=== PATIENT | female | born 1935 | race Caucasian/White ===

== ENCOUNTER 2016-02-23 11:24 | Inpatient (IN) | payer MEDICARE, OTHER ==
[~2016-02-23] VITALS: Ht 170.2 cm; Wt 77.1 kg
[2016-02-23] MEDS ORDERED: CEFTRIAXONE 1 GM VIAL ONE (12:57)
[2016-02-23] MEDS ORDERED: SODIUM CHLORIDE 0.9% 100 ML IV ONE (12:57)
[2016-02-23] MEDS ORDERED: SODIUM CHLORIDE 0.9% 1,000 ML ONE (12:57)
[2016-02-23] MEDS ORDERED: NEB-ALBUTEROL 2.5 MG/3 ML INH ONE ×2 (13:32→13:33)
[2016-02-23] MEDS ORDERED: DUONEB INH ONE (13:32)
[2016-02-23] MEDS ORDERED: ACETAMINOPHEN 325 MG TAB ONE (13:57)
[2016-02-23] MEDS ORDERED: AZITHROMYCIN 500 MG VIAL IV ONE (13:57)
[2016-02-23] MEDS ORDERED: SODIUM CHLORIDE 0.9% 250 ML IV ONE (13:58)
[2016-02-23] MEDS ORDERED: LORAZEPAM 2 MG/ML VIAL ONE (13:58)
[2016-02-23] MEDS ORDERED: ONDANSETRON 4 MG VIAL IV PUSH PRN (15:05)
[2016-02-23] MEDS ORDERED: LACT RINGERS 1,000 ML IV ONE (15:05)
[2016-02-23] MEDS ORDERED: PHARMACY TO DOSE IV SCH ×2 (15:05)
[2016-02-23] MEDS ORDERED: SALINE FLUSH 10 ML FLUSH PRN (15:05)
[2016-02-23] MEDS ORDERED: GLUCAGON 1 MG VIAL IM PRN (15:05)
[2016-02-23] MEDS ORDERED: DEXTROSE 50% SYRINGE 50 ML IV PRN (15:05)
[2016-02-23] MEDS ORDERED: ACETAMINOPHEN 325 MG TAB PO PRN (15:05)
[2016-02-23] MEDS ORDERED: DILTIAZEM 50 MG/10 ML VIAL IV ONE (15:18)
[2016-02-23 18:14] VITALS: RESP 16
[2016-02-23 18:22] VITALS: BP_SYST 132; BP_SYST 136; RESP 16; TEMP 98
[2016-02-23 18:23] VITALS: Ht 170.2 cm; Wt 77.1 kg
[2016-02-23 19:00] VITALS: BP_SYST 133; RESP 19; TEMP 97.7
[2016-02-23] MEDS ORDERED: METHYLPRED SOD SUCC 40 MG VIAL IV ONE (19:40)
[2016-02-23] MEDS ORDERED: METHYLPRED SOD SUCC 125 MG/2 ML VIAL IV ONE (19:55)
[2016-02-23] MEDS ORDERED: DUONEB INH PRN (19:55)
[2016-02-23] MEDS ORDERED: LACT RINGERS 1,000 ML IV SCH (20:15)
[2016-02-23] MEDS: SYSTANE OP SOLN EYE EACH SCH (22:02)
[2016-02-23] MEDS: SALINE FLUSH 10 ML FLUSH SCH (22:03)
[2016-02-23] MEDS: DOCUSATE SOD 100 MG CAP PO SCH (22:03)
[2016-02-23] MEDS: FAMOTIDINE 20 MG TAB PO SCH (22:03)
[2016-02-23] MEDS ORDERED: LORAZEPAM 2 MG/ML VIAL IV PRN (22:20)
[2016-02-23 23:00] VITALS: BP_SYST 153; RESP 19; TEMP 98.3
[2016-02-23] MEDS: APIXABAN 2.5 MG TAB PO SCH (23:18)
[2016-02-23] MEDS: Atorvastatin 10 MG TAB PO SCH (23:18)
[2016-02-23] MEDS: PRAMIPEXOLE 0.25 MG TAB PO SCH (23:18)
[2016-02-24] VITALS (7 sets, daily range): BP systolic 119–151; RESP 16–18; TEMP 97.8–98.4
[2016-02-24] MEDS: DUONEB INH SCH ×6 (00:18→22:23)
[2016-02-24] MEDS: SODIUM CHLORIDE 0.9% FLUSH BAG 500 ML IV SCH (05:42)
[2016-02-24] MEDS: LEVOTHYROXINE 0.05 MG TAB PO SCH (05:42)
[2016-02-24] MEDS: LEVEMIR INSULIN SUBQ SCH (09:29)
[2016-02-24] MEDS: SYSTANE OP SOLN EYE EACH SCH ×2 (09:29→20:03)
[2016-02-24] MEDS: METHYLPRED SOD SUCC 40 MG VIAL IV SCH ×2 (09:29→20:03)
[2016-02-24] MEDS: FLUTICASONE 0.05% NA BTL NARE EACH SCH (09:30)
[2016-02-24] MEDS: METOPROLOL XL 50 MG TAB PO SCH (09:30)
[2016-02-24] MEDS: PRAMIPEXOLE 0.25 MG TAB PO SCH ×3 (09:30→20:03)
[2016-02-24] MEDS: APIXABAN 2.5 MG TAB PO SCH ×2 (09:30→20:03)
[2016-02-24] MEDS: SALINE FLUSH 10 ML FLUSH SCH ×2 (09:30→20:03)
[2016-02-24] MEDS: ASPIRIN EC 81 MG TAB PO SCH (09:30)
[2016-02-24] MEDS: FAMOTIDINE 20 MG TAB PO SCH ×2 (09:30→20:03)
[2016-02-24] MEDS: CEFTRIAXONE 2 GM in SODIUM CHLORIDE 0.9% 50 ML IV SCH (10:21)
[2016-02-24] MEDS: AZITHROMYCIN 500 MG in SODIUM CHLORIDE 0.9% 250 ML IV SCH (11:13)
[2016-02-24] MEDS: DOCUSATE SOD 100 MG CAP PO SCH (20:03)
[2016-02-24] MEDS: Atorvastatin 10 MG TAB PO SCH (20:03)
[2016-02-25] VITALS (7 sets, daily range): BP systolic 147–158; RESP 18; TEMP 97.2–98.7
[2016-02-25] MEDS: DUONEB INH SCH ×6 (02:03→22:57)
[2016-02-25] MEDS: LEVOTHYROXINE 0.05 MG TAB PO SCH (05:42)
[2016-02-25] MEDS: SODIUM CHLORIDE 0.9% FLUSH BAG 500 ML IV SCH (05:42)
[2016-02-25] MEDS: METHYLPRED SOD SUCC 40 MG VIAL IV SCH (10:12)
[2016-02-25] MEDS: SYSTANE OP SOLN EYE EACH SCH ×2 (10:12→20:28)
[2016-02-25] MEDS: APIXABAN 2.5 MG TAB PO SCH ×2 (10:13→20:29)
[2016-02-25] MEDS: PRAMIPEXOLE 0.25 MG TAB PO SCH ×3 (10:13→20:30)
[2016-02-25] MEDS: FAMOTIDINE 20 MG TAB PO SCH ×2 (10:13→20:30)
[2016-02-25] MEDS: CEFTRIAXONE 2 GM in SODIUM CHLORIDE 0.9% 50 ML IV SCH (10:13)
[2016-02-25] MEDS: AZITHROMYCIN 500 MG in SODIUM CHLORIDE 0.9% 250 ML IV SCH (10:13)
[2016-02-25] MEDS: FLUTICASONE 0.05% NA BTL NARE EACH SCH (10:13)
[2016-02-25] MEDS: ASPIRIN EC 81 MG TAB PO SCH (10:14)
[2016-02-25] MEDS: METOPROLOL XL 50 MG TAB PO SCH (10:14)
[2016-02-25] MEDS: SALINE FLUSH 10 ML FLUSH SCH ×2 (10:33→20:30)
[2016-02-25] MEDS: LEVEMIR INSULIN SUBQ SCH (10:34)
[2016-02-25] MEDS: SACCHA BOULARDII 250MG CAP PO SCH ×3 (12:01→20:30)
[2016-02-25] MEDS: ACETAMINOPHEN 500 MG TAB PO SCH (16:43)
[2016-02-25] MEDS: DOCUSATE SOD 100 MG CAP PO SCH (20:29)
[2016-02-25] MEDS: Atorvastatin 10 MG TAB PO SCH (20:29)
[2016-02-25] MEDS: TRAZODONE 50 MG TAB PO SCH (20:53)
[2016-02-26 04:41] VITALS: BP_SYST 150; RESP 18; TEMP 98.2
[2016-02-26] MEDS: SODIUM CHLORIDE 0.9% FLUSH BAG 500 ML IV SCH (05:05)
[2016-02-26] MEDS: LEVOTHYROXINE 0.05 MG TAB PO SCH (05:51)
[2016-02-26] MEDS: DUONEB INH SCH ×5 (06:10→22:28)
[2016-02-26 07:40] VITALS: BP_SYST 144; RESP 18; TEMP 98.1
[2016-02-26] MEDS ORDERED: PREDNISONE 10 MG TAB PO SCH (09:00)
[2016-02-26] MEDS ORDERED: MISSING DOSE XX ONE ×2 (09:40→17:00)
[2016-02-26] MEDS: FLUTICASONE 0.05% NA BTL NARE EACH SCH (09:45)
[2016-02-26] MEDS: SYSTANE OP SOLN EYE EACH SCH ×2 (09:45→20:51)
[2016-02-26] MEDS: LEVEMIR INSULIN SUBQ SCH (09:46)
[2016-02-26] MEDS: FAMOTIDINE 20 MG TAB PO SCH ×2 (09:47→20:52)
[2016-02-26] MEDS: METOPROLOL XL 50 MG TAB PO SCH (09:47)
[2016-02-26] MEDS: ACETAMINOPHEN 500 MG TAB PO SCH ×3 (09:47→17:42)
[2016-02-26] MEDS: PRAMIPEXOLE 0.25 MG TAB PO SCH ×3 (09:47→20:52)
[2016-02-26] MEDS: ASPIRIN EC 81 MG TAB PO SCH (09:48)
[2016-02-26] MEDS: APIXABAN 2.5 MG TAB PO SCH ×2 (09:48→20:52)
[2016-02-26] MEDS: SACCHA BOULARDII 250MG CAP PO SCH ×3 (09:48→20:52)
[2016-02-26] MEDS: SALINE FLUSH 10 ML FLUSH SCH ×2 (09:48→20:51)
[2016-02-26] MEDS: CEFTRIAXONE 2 GM in SODIUM CHLORIDE 0.9% 50 ML IV SCH (10:03)
[2016-02-26 11:19] VITALS: BP_SYST 155; RESP 18; TEMP 98.4
[2016-02-26 16:07] VITALS: BP_SYST 153; RESP 18; TEMP 98.4
[2016-02-26] MEDS: Amoxicillin Tr 500 MG CAP PO SCH ×2 (16:50→20:52)
[2016-02-26 19:00] VITALS: BP_SYST 153; RESP 18; TEMP 98
[2016-02-26] MEDS: DOCUSATE SOD 100 MG CAP PO SCH (20:52)
[2016-02-26] MEDS: TRAZODONE 50 MG TAB PO SCH (20:52)
[2016-02-26] MEDS: Atorvastatin 10 MG TAB PO SCH (20:52)
[2016-02-26 23:00] VITALS: BP_SYST 161; RESP 18; TEMP 97.9
[2016-02-27 03:00] VITALS: BP_SYST 105; RESP 18; TEMP 97.9
[2016-02-27] MEDS: SODIUM CHLORIDE 0.9% FLUSH BAG 500 ML IV SCH (04:22)
[2016-02-27] MEDS: DUONEB INH SCH ×5 (05:24→23:08)
[2016-02-27] MEDS: LEVOTHYROXINE 0.05 MG TAB PO SCH (06:33)
[2016-02-27 07:22] VITALS: BP_SYST 161; BP_SYST 168; RESP 24; TEMP 98
[2016-02-27] MEDS ORDERED: LEVEMIR INSULIN SUBQ SCH (08:00)
[2016-02-27] MEDS ORDERED: PREDNISONE 20 MG TAB PO SCH (09:00)
[2016-02-27] MEDS: ACETAMINOPHEN 500 MG TAB PO SCH ×3 (09:35→16:00)
[2016-02-27] MEDS: PRAMIPEXOLE 0.25 MG TAB PO SCH ×3 (09:35→20:21)
[2016-02-27] MEDS: ASPIRIN EC 81 MG TAB PO SCH (09:35)
[2016-02-27] MEDS: FAMOTIDINE 20 MG TAB PO SCH ×2 (09:36→20:21)
[2016-02-27] MEDS: SACCHA BOULARDII 250MG CAP PO SCH ×3 (09:36→20:21)
[2016-02-27] MEDS: METOPROLOL XL 50 MG TAB PO SCH (09:36)
[2016-02-27] MEDS: APIXABAN 2.5 MG TAB PO SCH ×2 (09:36→20:21)
[2016-02-27] MEDS: Amoxicillin Tr 500 MG CAP PO SCH ×3 (09:36→20:21)
[2016-02-27] MEDS: SYSTANE OP SOLN EYE EACH SCH ×2 (09:38→20:19)
[2016-02-27] MEDS: FLUTICASONE 0.05% NA BTL NARE EACH SCH (09:39)
[2016-02-27] MEDS: SALINE FLUSH 10 ML FLUSH SCH ×2 (09:40→20:00)
[2016-02-27] MEDS ORDERED: MISSING DOSE XX ONE (11:50)
[2016-02-27 12:40] VITALS: BP_SYST 150; RESP 18; TEMP 97.9
[2016-02-27 15:00] VITALS: BP_SYST 168; RESP 20; TEMP 97.5
[2016-02-27 20:09] VITALS: BP_SYST 147; RESP 20; TEMP 98.4
[2016-02-27] MEDS: DOCUSATE SOD 100 MG CAP PO SCH (20:21)
[2016-02-27] MEDS: Atorvastatin 10 MG TAB PO SCH (20:21)
[2016-02-27] MEDS: TRAZODONE 50 MG TAB PO SCH (20:21)
[2016-02-27 23:35] VITALS: BP_SYST 167; RESP 20; TEMP 98.8
[2016-02-28] MEDS: ACETAMINOPHEN 500 MG TAB PO SCH ×3 (01:21→16:45)
[2016-02-28 03:45] VITALS: BP_SYST 156; RESP 20; TEMP 97.7
[2016-02-28] MEDS: LEVOTHYROXINE 0.05 MG TAB PO SCH (06:08)
[2016-02-28] MEDS: DUONEB INH SCH ×4 (06:42→17:59)
[2016-02-28 07:34] VITALS: BP_SYST 153; RESP 20; TEMP 98
[2016-02-28] MEDS ORDERED: LEVEMIR INSULIN SUBQ SCH (08:00)
[2016-02-28] MEDS: FLUTICASONE 0.05% NA BTL NARE EACH SCH (08:34)
[2016-02-28] MEDS: SYSTANE OP SOLN EYE EACH SCH (08:34)
[2016-02-28] MEDS: Amoxicillin Tr 500 MG CAP PO SCH ×2 (08:34→16:43)
[2016-02-28] MEDS: PRAMIPEXOLE 0.25 MG TAB PO SCH ×2 (08:35→16:43)
[2016-02-28] MEDS: SACCHA BOULARDII 250MG CAP PO SCH ×2 (08:35→16:43)
[2016-02-28] MEDS: FAMOTIDINE 20 MG TAB PO SCH (08:35)
[2016-02-28] MEDS: ASPIRIN EC 81 MG TAB PO SCH (08:35)
[2016-02-28] MEDS: APIXABAN 2.5 MG TAB PO SCH (08:35)
[2016-02-28] MEDS: METOPROLOL XL 50 MG TAB PO SCH (08:37)
[2016-02-28] MEDS ORDERED: PREDNISONE 5 MG TAB PO SCH (09:00)
[2016-02-28 11:27] VITALS: BP_SYST 152; RESP 20; TEMP 98.1
[2016-02-28] MEDS ORDERED: Furosemide 40 MG/4 ML VIAL IV ONE (13:15)
[2016-02-28] MEDS ORDERED: METOPROLOL 5 MG/5 ML VIAL IV ONE (13:15)
[2016-02-28] MEDS ORDERED: Furosemide 80 MG TAB PO ONE (14:25)
[2016-02-28] MEDS ORDERED: METOPROLOL TART 25 MG TAB PO ONE (14:25)
[2016-02-28 15:04] VITALS: BP_SYST 174; RESP 16; TEMP 98.7
[2016-02-28 16:52] VITALS: BP_SYST 152; RESP 20; TEMP 98.1
[2016-02-28] MEDS ORDERED: METOPROLOL TART 25 MG TAB PO SCH (21:00)
== END 2016-02-28 20:16 | DRG 871 ==
LOC: ENRESERVTM → ENRESERVDT → ER 11:24 → ENPENDDIS 15:09 → EMR 15:09 → PCU 17:04
PROVIDERS: ADMIT Family Medicine; ATTEND Family Medicine
CPT/HCPCS: 36415; 36600; 71020; 80053; 81001; 82553; 82607; 82746; 82803; 82947; 83605; 83880; 84145; 84439; 84443; 84484; 85025; 87040; 87088; 87278; 87299; 87804; 93005; 93306; 94640; 94667; 94762; 94799; 96361; 96365; 96366; 96367; 96375; 99232; 99233; 99239

== ENCOUNTER 2016-04-01 19:40 | Inpatient (IN) | payer MEDICARE, OTHER ==
[~2016-04-01] VITALS: Ht 170.2 cm; Wt 74.9 kg
[2016-04-01] MEDS ORDERED: SODIUM CHLORIDE 0.9% 100 ML IV ONE (22:40)
[2016-04-01] MEDS ORDERED: SODIUM CHLORIDE 0.9% 1,000 ML ONE (22:40)
[2016-04-01] MEDS ORDERED: CEFTRIAXONE 1 GM VIAL ONE (22:40)
[2016-04-02] MEDS: OSELTAMIVIR 75 MG CAP PO SCH ×2 (02:30→09:10)
[2016-04-02] MEDS ORDERED: Furosemide 40 MG/4 ML VIAL IV ONE (02:35)
[2016-04-02] MEDS ORDERED: DEXTROSE 50% SYRINGE 50 ML IV PRN (02:35)
[2016-04-02] MEDS ORDERED: ACETAMINOPHEN 325 MG TAB PO PRN (02:35)
[2016-04-02] MEDS ORDERED: SALINE FLUSH 10 ML FLUSH PRN (02:35)
[2016-04-02] MEDS ORDERED: GLUCAGON 1 MG VIAL IM PRN (02:35)
[2016-04-02] MEDS ORDERED: MAG HYDROX 30 ML UDC PO PRN (02:35)
[2016-04-02] MEDS ORDERED: ALU/MAG/SIM 30 ML UDC PO PRN (02:35)
[2016-04-02] MEDS ORDERED: BISACODYL EC 5 MG TAB PO PRN (02:35)
[2016-04-02] MEDS ORDERED: ONDANSETRON 4 MG VIAL IV PRN (02:35)
[2016-04-02] MEDS ORDERED: BISACODYL 10 MG SUPP RECTAL PRN (02:35)
[2016-04-02 04:37] VITALS: Ht 170.2 cm; Wt 74.9 kg
[2016-04-02 04:38] VITALS: BP_SYST 120; RESP 22; TEMP 99.4
[2016-04-02] MEDS: DUONEB INH SCH ×7 (04:50→22:26)
[2016-04-02 05:25] VITALS: RESP 18
[2016-04-02] MEDS: SODIUM CHLORIDE 0.9% FLUSH BAG 500 ML IV SCH (05:38)
[2016-04-02 08:32] VITALS: BP_SYST 142; RESP 16; TEMP 99.4
[2016-04-02] MEDS: SALINE FLUSH 10 ML FLUSH SCH ×2 (09:11→21:10)
[2016-04-02 11:51] VITALS: BP_SYST 118; RESP 18; TEMP 97.6
[2016-04-02 15:06] VITALS: BP_SYST 128; RESP 18; TEMP 97.8
[2016-04-02 20:55] VITALS: BP_SYST 124; RESP 18; TEMP 97.9
[2016-04-02] MEDS: OSELTAMIVIR 30 MG/5 ML PO SCH (21:10)
[2016-04-03] VITALS (7 sets, daily range): BP systolic 122–144; RESP 18–20; TEMP 97.4–98.6
[2016-04-03] MEDS: DUONEB INH SCH ×5 (02:29→18:59)
[2016-04-03] MEDS: SODIUM CHLORIDE 0.9% FLUSH BAG 500 ML IV SCH (06:00)
[2016-04-03] MEDS: SALINE FLUSH 10 ML FLUSH SCH (08:32)
[2016-04-03] MEDS: OSELTAMIVIR 30 MG/5 ML PO SCH (08:33)
== END 2016-04-03 20:24 | disposition home health service (06) | DRG 153 ==
LOC: ENRESERVTM → ENRESERVDT → ER 19:40 → EMR 19:41 → 4NT 04-02 04:33 → ENPENDDIS 04-02 18:15 → OBSVTOIN 04-02 18:15
PROVIDERS: ADMIT Family Medicine; ATTEND Family Medicine
DX: J11.1 Influenza due to unidentified influenza virus with other respiratory manifestations (principal); I11.0 Hypertensive heart disease with heart failure; F03.90 Unspecified dementia, unspecified severity, without behavioral disturbance, psychotic disturbance, mood disturbance, and anxiety; I50.9 Heart failure, unspecified; I48.91 Unspecified atrial fibrillation; E11.9 Type 2 diabetes mellitus without complications; Z79.4 Long term (current) use of insulin; I25.10 Atherosclerotic heart disease of native coronary artery without angina pectoris; Z66 Do not resuscitate; Z79.82 Long term (current) use of aspirin
CPT/HCPCS: 36415; 36600; 70450; 71010; 80048; 80053; 81001; 82140; 82803; 82947; 83605; 83880; 85025; 87040; 87088; 87804; 94640; 94667; 94799; 96361; 96374; 99219; 99239